=== PATIENT | female | born 1975 | race Caucasian/White ===

== ENCOUNTER 2016-06-23 15:35 | Inpatient (IN) | payer OTHER ==
--- NOTE | ~2016-06-23 | CN ---
Consultation Report [facility] [address] [place]. [address] NAME: GEM GARCIA : 79 STATUS : ADM IN PAT#: [id number] AGE: 41 ADM/REG DATE : 06/23/16 MR#: [id number] REPORT SERV DATE: 06/24/16 DICTATED BY: KASEY WEINBERG DATE: 06/24/16 REPORT STATUS : Draft TRANSCRIBED BY: MODL DATE: 06/24/16 HOSPITALIST CONSULTATION DATE OF CONSULTATION: 06/23/2016 REASON FOR CONSULTATION: Consult for management of diabetes per Dr. David Singh. HISTORY OF PRESENT ILLNESS: This is an awake, alert, and oriented, pleasant 41-year-old female, who was admitted to Dr. Singh today post STEMI and was subsequently taken for PCI with stent placement. We have been asked to follow her during this hospital stay for management of her type 2 diabetes. The patient reports a history of gestational diabetes that was previously well controlled on insulin due to intolerance of oral agents. She had requested to manage the diabetes with insulin. The PCP at that time did not agree. With that regimen, she has been attempting to control her diabetes with lifestyle changes since that time. She does not regularly check her blood sugars at home and reports that her last hemoglobin A1c was greater than one year ago. The patient denies all symptoms at this time including chest pain, palpitations, dyspnea, headache, vision disturbances, nausea, vomiting, diarrhea, or abdominal pain. PAST MEDICAL HISTORY: Significant for: 1. Type 2 diabetes mellitus. 2. Headaches. 3. Osteoarthritis. 4. Angina. 5. STEMI. PAST SURGICAL HISTORY: Significant for: 1. PCI with stent placement, 06/23/2016. 2. D and C. 3. Oral surgery. The patient's primary care provider is now physician's care in [place], [place]. SOCIAL HISTORY: The patient is and lives at home with her and child. She is currently a smoker, reporting a history of one and half packs per day for greater than 20 years. She denies alcohol and illicit drug use. FAMILY HISTORY: Mother has a history of [place], CABG x3, type 2 diabetes, hypertension, thyroid problems. Her father of a heart attack 25 years ago. Her maternal grandmother also has known diabetes type 2, thyroid disease, and "heart problems", and paternal grandparents both have "heart issues." ALLERGIES: NO KNOWN ALLERGIES. HOME MEDICATIONS: Include ibuprofen 400 mg p.o. every six hours p.r.n. pain. Consultation Report [facility] [place]. [address] NAME: GEM GARCIA : 79 STATUS : ADM IN PAT#: [id number] AGE: 41 ADM/REG DATE : 06/23/16 MR#: [id number] REPORT SERV DATE: 06/24/16 DICTATED BY: KASEY WEINBERG DATE: 06/24/16 REPORT STATUS : Draft TRANSCRIBED BY: MODL DATE: 06/24/16 REVIEW OF SYSTEMS: A complete 10-point review of systems was negative except as per HPI. PHYSICAL EXAMINATION: VITAL SIGNS: T 98.6, P 79, RR 24, BP 111/73, SpO2 97% on room air. GENERAL: Well-appearing female in no acute distress. NEUROLOGIC: Awake, alert, oriented x3 without focal deficit. HEENT: Normocephalic, atraumatic without lymphadenopathy. NECK: Supple. No JVD. LUNGS: CTA in all lung carbajal with normal respiratory effort. CV: Regular rate and rhythm. S1, S2 auscultated. ABDOMEN: Soft, round, nontender. Bowel sounds hyperactive in all quadrants. No masses. EXTREMITIES: No cyanosis and cap refill within normal limits. Generalized edema to bilateral lower extremities. PSYCHIATRIC: Normal affect. SKIN: Clean, dry, and intact with mucous membranes pink and moist. LABORATORY DATA: Pertinent labs; blood sugar ranges since arrival have been from 211-363. ASSESSMENT AND PLAN: 1. Type 2 diabetes mellitus. This is chronic with currently unknown or recent hemoglobin A1c based on blood sugar ranges of 211-363. This diabetes is uncontrolled at this time. We will add hemoglobin A1c to the a.m. labs, increase her sliding scale insulin to level 2 at this time, and monitor her labs. We will adjust sliding scale as necessary. The patient declines intervention with nurse educator at this time and is encouraged to notify staff if she would like to speak with nurse educator as this might improve her outcomes. 2. Osteoarthritis. This is chronic. She reports previously using tramadol and muscle relaxers, but has not taken those in greater than one week at this time. We will again monitor labs for this osteoarthritis and follow with the p.r.n. pain coverage provided by primary team. 3. Tobacco abuse. This is chronic with the patient smoking one and half packs per day for greater than 20 years. We will defer management of this to the primary team and offer nicotine replacement protocol if needed. 4. ST-elevation myocardial infarction. The patient is now post PCI 06/23/2016. We will defer management of this to the primary team. Thank you for this consult. We are pleased to follow this patient with you. This consult was completed through thorough review of [employer], old records, [employer], and current chart as well as thorough interview with the patient. [facility]/MODL Consultation Report [place] [id number] [facility] [place] [address] NAME: GEM GARCIA : 79 STATUS : ADM IN [facility]#: [id number] AGE: 41 ADM/REG DATE : 06/23/16 MR#: [id number] REPORT SERV DATE: 06/24/16 DICTATED BY: KASEY WEINBERG DATE: 06/24/16 REPORT STATUS : Draft TRANSCRIBED BY: LIZABETH DATE: 06/24/16 Kasey Weinberg NP / [id number] CC: David Singh M.D., [facility]
--- NOTE | ~2016-06-23 | HP ---
History And Physical [place] [id number] [place]. [address] NAME: ROSA ELENA GALICIA : 79 STATUS : ADM IN [facility]#: [id number] AGE: 41 ADM/REG DATE : 06/23/16 MR#: [id number] REPORT SERV DATE: 06/23/16 DICTATED BY: LIZETTE NARAYANAN DATE: 06/23/16 REPORT STATUS : Draft TRANSCRIBED BY: MODL DATE: 06/23/16 DATE OF ADMISSION: 06/23/2016 HISTORY OF PRESENT ILLNESS: Ms. Rosa Elena Galicia is a 41-year-old female without past known cardiac disease who presented to the physician's care in [place], complaining of a 3-day history of intermittent substernal chest pain which radiated to the arms bilaterally. She reports that she would have the discomfort for an hour or so and then it would spontaneously improve. She reports that she presented to the physician's care after this discomfort did not improve earlier today. She was found at physician's care to have an acute inferior lateral myocardial infarction and was transferred here for further evaluation and treatment. REVIEW OF SYSTEMS: The patient denies any orthopnea, paroxysmal nocturnal dyspnea, syncope, or presyncope. Denies any gastrointestinal, genitourinary, neurologic, or respiratory complaints except as per HPI. PAST MEDICAL HISTORY: Significant for gestational diabetes which after about a year became more of a type 2 diabetes type pattern. The patient states that she quit taking her medications secondary to constipation and tried to treat it with diet and weight loss. She was able to lose about 50 pounds. The patient reports that she is status post D and C, but has had no other surgical procedures except for dental procedures. MEDICATIONS PRIOR TO ADMISSION: None. ALLERGIES: THE PATIENT REPORTS NO KNOWN DRUG ALLERGIES. FAMILY HISTORY: Extensive for coronary artery disease at a premature age. Her mother underwent bypass in her 40s. Her father from myocardial infarction in his 40s. She also has many aunts and uncles who have coronary disease. SOCIAL HISTORY: The patient smokes approximately one pack per day. PHYSICAL EXAMINATION: VITAL SIGNS: Vital signs are stable. The patient is afebrile. GENERAL: This is a well-developed, well-nourished, 41-year-old, white female, alert and oriented x3 in no acute distress. NECK: No jugular venous distention hepatojugular reflux, or carotid bruits. CARDIOVASCULAR: Normal rate with regular rhythm. No murmur, gallop, click, or rub. LUNGS: Clear to auscultation without wheezes, rales, or rhonchi. ABDOMEN: Soft, nontender, and nondistended. Positive bowel sounds. EXTREMITIES: Without clubbing, cyanosis, or edema. DATA: EKG shows acute inferior lateral myocardial infarction. History And Physical [address] [address] NAME: ROSA ELENA GALICIA : 79 STATUS : ADM IN PAT#: [id number] AGE: 41 ADM/REG DATE : 06/23/16 MR#: [id number] REPORT SERV DATE: 06/23/16 DICTATED BY: LIZETTE NARAYANAN DATE: 06/23/16 REPORT STATUS : Draft TRANSCRIBED BY: LIZABETH DATE: 06/23/16 Troponin elevated at over 17. ASSESSMENT: 1. Acute inferior lateral myocardial infarction. 2. Coronary artery disease. 3. Diabetes mellitus type 2. 4. Nicotine dependence. PLAN: 1. Left heart catheterization, possible PCI. 2. See orders. 3. Smoking cessation. 4. Diabetes management. SA/ANDIL Lizette Narayanan M.D., [facility] / [id number] CC: Lizette Narayanan M.D., [facility]
--- NOTE | ~2016-06-23 | OP ---
Record Of Operation [facility] [address] [place]. [address] NAME: GEM GARCIA : 79 STATUS : ADM IN PAT#: [id number] AGE: 41 ADM/REG DATE : 06/23/16 MR#: [id number] REPORT SERV DATE: 06/23/16 DICTATED BY: DAVID NARAYANAN DATE: 06/23/16 REPORT STATUS : Draft TRANSCRIBED BY: MODL DATE: 06/23/16 DATE OF PROCEDURE: 06/23/2016 CARDIAC CATHETERIZATION REPORT INDICATION: Acute inferolateral myocardial infarction. PROCEDURE: Left heart catheterization, coronary arteriography, left ventriculography, PCI/stent of proximal right coronary artery. DESCRIPTION OF PROCEDURE: The patient was taken emergently to the cardiac catheterization laboratory, where she was prepped and draped in a sterile fashion. IV moderate sedation was obtained using intravenous Versed and fentanyl. The right inguinal region was anesthetized using 1% Xylocaine. The right femoral artery was then entered using a front wall approach and cannulated with a 6-Australian arterial sheath. A 6-Australian Mukesh right catheter was then used to engage the right coronary artery. Angiograms were obtained. This catheter was then exchanged for a 6-Australian JL4 diagnostic catheter, which was used to engage the left main coronary artery. Serial angiograms of this vessel were obtained. The PCI was then performed as described below. Following the PCI, a 6-Australian angled pigtail catheter was used to cross the aortic valve, which time a left ventriculogram was performed. The catheter was then withdrawn back across the aortic valve with no significant aortic transvalvular gradient. Results of the diagnostic study are as follows: HEMODYNAMICS: Aorta 114/69 with a mean pressure of 90 mmHg. Left ventricle 119/7 with end- diastolic pressure of 15 mmHg. CORONARY ANATOMY: 1. Left main coronary artery: The left main coronary artery arises normally from left coronary cusp. This vessel has a 20% distal tapering stenosis. 2. Left anterior descending artery: The left anterior descending artery arises normally from left main coronary artery. This vessel has diffuse luminal irregularities in the proximal mid segments to 30%. 3. Ramus intermedius: The ramus intermedius arises normally from left main coronary artery. This is a very small vessel, which has luminal irregularities only. 4. Left circumflex artery: The left circumflex artery arises normally from left main coronary artery. This is a small nondominant vessel, which has diffuse disease of 30% to 40%. 5. Right coronary artery: The right coronary artery arises normally from the right coronary cusp. This is a very large dominant vessel, which is 100% occluded proximally with visible thrombus. The distal filling of the PDA and DON was visualized from the left system. LEFT VENTRICULOGRAM: Left ventriculogram was performed, which showed hypokinesis of the inferior wall. Systolic function is mildly reduced with an ejection fraction of 45%. There is no significant mitral insufficiency. Record Of Operation [facility] [address] [facility] [place]. [address] NAME: GEM GARCIA : 79 STATUS : ADM IN PAT#: [id number] AGE: 41 ADM/REG DATE : 06/23/16 MR#: [id number] REPORT SERV DATE: 06/23/16 DICTATED BY: DAVID NARAYANAN DATE: 06/23/16 REPORT STATUS : Draft TRANSCRIBED BY: MODL DATE: 06/23/16 After the above findings, it was decided to proceed with PCI and stenting of the proximal right 100% occlusion. A 6-Australian JR4 guiding catheter was used with a Cho[employer] PT 0.014 x 182 cm extra support wire to cross the lesion. A [employer] Emerge 3.0 x 15 mm balloon was then positioned across the stenosis and inflated to 8 atmospheres for 20 seconds. This balloon was then withdrawn and a [employer] [employer], Synergy 3.5 x 38 mm drug-eluting stent was carefully positioned and deployed using 11 atmospheres for 20 seconds. Additional inflation was performed at 16 atmospheres for 20 seconds. Repeat angiography revealed a 0% residual stenosis with no dissection, flap, or persistent occlusion apparent. There was some small distal embolization of thrombus, but this was very distal in the posterior descending and posterior lateral branches and not amenable to thrombectomy. Angiomax was ordered to continue after the case and Brilinta was given in the forestry laborer. COMPLICATIONS: There were no apparent complications. CONCLUSION: 1. Multivessel coronary artery disease as described above. 2. A 100% occluded proximal right coronary artery. 3. Regional wall motion abnormalities described above with mildly depressed systolic function. 4. Successful PCI/stent of 100% proximal right coronary artery stenosis, 0% residual stenosis using a [employer], Synergy 3.5 x 38 mm drug-eluting stent. 5. No apparent complications. SA/MODL David Narayanan M.D., [facility] / [id number] CC: David Narayanan M.D., [facility]
[2016-06-23 16:11] LABS: BASOPHILS 0.3 %; BASOPHILS ABSOLUTE 0.03 10/3/uL (0.0-0.16); EOSINOPHILS 1.1 %; EOSINOPHILS ABSOLUTE 0.12 10/3/uL (0.0-0.53); HEMATOCRIT 39.2 % (36.0-48.0); IMMATURE GRANULOCYTES 0.4 %; IMMATURE GRANULOCYTES ABSOLUTE 0.04 10/3/uL (0.0-0.11); LYMPHOCYTES 13.9 %; LYMPHOCYTES ABSOLUTE 1.59 10/3/uL (0.67-4.30); MEAN CORPUS HGB CONC 35.7 g/dL (32.0-36.0); MEAN CORPUSCULAR HEMOGLOB 29.9 pg (26.0-34.0); MEAN CORPUSCULAR VOLUME 83.6 fL (80-100); MEAN PLATELET VOLUME 10.6 fL (9.2-13.0); MONOCYTES 3.5 %; NEUTROPHILS 80.8 %; NEUTROPHILS ABSOLUTE 9.23 10/3/uL (2.02-8.40); PLATELET COUNT 254 10/3/uL (150-400); RBC DISTRIBUTION WIDTH 13.3 % (12.0-16.0); RED CELL COUNT 4.69 10/6/uL (4.0-5.6); WHITE BLOOD CELLS 11.4 10/3/uL (4.5-10.5)
[2016-06-23 16:12] LABS: MANUAL DIFF NO %
[2016-06-23 16:14] LABS: BUN (BLOOD UREA NITROGEN) 14 MG/DL (6-23); CALCIUM, SERUM 8.4 MG/DL (8.5-10.4); CHLORIDE, SERUM 103 MMOL/L (96-112); CO2 (CARBON DIOXIDE) 24 MMOL/L (24-34); CREATININE 0.57 MG/DL (0.55-1.02); GFR AFRICAN AMERICAN 135 ML/MIN (>=60); GFR NON AFRICAN AMERICAN 117 ML/MIN (>=60); POTASSIUM, SERUM 3.9 MMOL/L (3.5-5.3); SODIUM, SERUM 135 MMOL/L (135-148)
[2016-06-23 16:17] LABS: CREATININE 0.3 MG/DL (0.55-1.02)
[2016-06-23 16:19] LABS: CHEST PAIN PROFILE TAT 0 Hrs 25 Mins; GLUCOSE, SERUM 355 MG/DL (60-99)
[2016-06-23 16:21] LABS: PARTIAL THROMBO TIME > 150.0 SEC (22.5-37.2)
[2016-06-23] MEDS ORDERED: ADVIL PO (17:37)
[2016-06-23 18:13] LABS: CK-MB 57.3 NG/ML; CKMB INDEX (NOT ORD) 6.7; CPK 854 U/L (0-200)
[2016-06-24 05:00] LABS: BASOPHILS 0.2 %; BASOPHILS ABSOLUTE 0.02 10/3/uL (0.0-0.16); EOSINOPHILS 2.8 %; EOSINOPHILS ABSOLUTE 0.31 10/3/uL (0.0-0.53); HEMATOCRIT 38.8 % (36.0-48.0); HEMOGLOBIN 13.3 g/dL (12.0-16.0); IMMATURE GRANULOCYTES 0.4 %; IMMATURE GRANULOCYTES ABSOLUTE 0.04 10/3/uL (0.0-0.11); LYMPHOCYTES 27.4 %; LYMPHOCYTES ABSOLUTE 3.08 10/3/uL (0.67-4.30); MEAN CORPUS HGB CONC 34.3 g/dL (32.0-36.0); MEAN CORPUSCULAR HEMOGLOB 29.1 pg (26.0-34.0); MEAN CORPUSCULAR VOLUME 84.9 fL (80-100); MEAN PLATELET VOLUME 10.7 fL (9.2-13.0); MONOCYTES 6.7 %; MONOCYTES ABSOLUTE 0.75 10/3/uL (0.21-1.20); NEUTROPHILS 62.5 %; NEUTROPHILS ABSOLUTE 7.06 10/3/uL (2.02-8.40); PLATELET COUNT 224 10/3/uL (150-400); RBC DISTRIBUTION WIDTH 13.5 % (12.0-16.0); RED CELL COUNT 4.57 10/6/uL (4.0-5.6); WHITE BLOOD CELLS 11.3 10/3/uL (4.5-10.5)
[2016-06-24 05:07] LABS: MANUAL DIFF NO %
[2016-06-24 05:28] LABS: BUN (BLOOD UREA NITROGEN) 14 MG/DL (6-23); CHLORIDE, SERUM 105 MMOL/L (96-112); CHOL/HDL RATIO(NOT ORDER) 6.6 (0-5); CHOLESTEROL 177 MG/DL (< 200); CK-MB 74.2 NG/ML; CO2 (CARBON DIOXIDE) 24 MMOL/L (24-34); CREATININE 0.59 MG/DL (0.55-1.02); GFR AFRICAN AMERICAN 134 ML/MIN (>=60); GFR NON AFRICAN AMERICAN 115 ML/MIN (>=60); HDL CHOLESTEROL 27 MG/DL (> 49); LDL CHOLESTEROL 99 MG/DL (< 130); NON-HDL CHOLESTEROL 150 MG/DL (< 160); POTASSIUM, SERUM 3.9 MMOL/L (3.5-5.3); SODIUM, SERUM 138 MMOL/L (135-148); TRIGLYCERIDE 258 MG/DL (< 150)
[2016-06-24 05:31] LABS: CKMB INDEX (NOT ORD) 5.5; CPK 1354 U/L (0-200); GLUCOSE, SERUM 245 MG/DL (60-99)
[2016-06-24 11:00] LABS: CK-MB 48.6 NG/ML; CKMB INDEX (NOT ORD) 4.5
[2016-06-25 06:55] LABS: CREATININE 0.63 MG/DL (0.55-1.02)
[2016-06-25] MEDS ORDERED: ASAB PO (16:30)
[2016-06-25] MEDS ORDERED: LIPITOR40 PO (16:30)
[2016-06-25] MEDS ORDERED: ZYBAN PO ×3 (16:31→16:42)
[2016-06-25] MEDS ORDERED: COREG3 PO (16:33)
[2016-06-25] MEDS ORDERED: ALTA2.5 PO (16:34)
[2016-06-25] MEDS ORDERED: BRILINTA90 MG PO (16:34)
[2016-06-25] MEDS ORDERED: NOVOLOG SQ (16:39)
[2016-06-25] MEDS ORDERED: LEVEMIR SC (16:39)
== END 2016-06-25 17:42 | disposition home or self-care (01) | DRG 247 ==
LOC: SSU2 15:35 → CCU 16:39 → 7NO 06-24 12:56
PROVIDERS: Internal Medicine Interventional Cardiology
PROC: 027034Z Dilation of Coronary Artery, One Artery with Drug-eluting Intraluminal Device, Percutaneous Approach (ICD-10-PCS; principal; 2016-06-23)
PROC: 4A023N7 Measurement of Cardiac Sampling and Pressure, Left Heart, Percutaneous Approach (ICD-10-PCS; 2016-06-23)
PROC: B2111ZZ Fluoroscopy of Multiple Coronary Arteries using Low Osmolar Contrast (ICD-10-PCS; 2016-06-23)
PROC: B2151ZZ Fluoroscopy of Left Heart using Low Osmolar Contrast (ICD-10-PCS; 2016-06-23)
DX: I21.19 ST elevation (STEMI) myocardial infarction involving other coronary artery of inferior wall (principal); E11.65 Type 2 diabetes mellitus with hyperglycemia; I25.10 Atherosclerotic heart disease of native coronary artery without angina pectoris; M19.90 Unspecified osteoarthritis, unspecified site; R51 Headache; F17.210 Nicotine dependence, cigarettes, uncomplicated; Z79.4 Long term (current) use of insulin
CPT/HCPCS: 71010; 80048; 80061; 82550; 82553; 82565; 82962; 83036; 83735; 84132; 84295; 84484; 85025; 85610; 85730; 93005; 93458; 99152; A9270-GY; C1725; C1769; C1874; C1887; C8929; C9606; J0583; J2250; J2405; J3010; Q9957; Q9967